=== PATIENT | female | born 1960 | race Caucasian/White ===

== ENCOUNTER 2018-03-08 16:58 | Emergency (ER) | payer BC ==
[~2018-03-08] VITALS: Ht 167.6 cm; Wt 77.6 kg
[2018-03-08 17:14] VITALS: BP 126/75; Ht 167.6 cm; Wt 77.6 kg
== END 2018-03-08 18:03 | disposition home or self-care (01) ==
LOC: ED 16:58
DX: M54.5 Low back pain (principal); N12 Tubulo-interstitial nephritis, not specified as acute or chronic; Z88.6 Allergy status to analgesic agent; Z88.0 Allergy status to penicillin; Z90.710 Acquired absence of both cervix and uterus

== ENCOUNTER 2019-10-15 01:13 | Emergency (ER) | payer BC ==
[~2019-10-15] VITALS: Ht 165.1 cm; Wt 83.0 kg
[2019-10-15 01:20] VITALS: Ht 165.1 cm; Wt 83.0 kg
[2019-10-15 03:12] VITALS: BP 137/74
== END 2019-10-15 03:12 | disposition home or self-care (01) ==
LOC: ED 01:13
DX: S60.561A Insect bite (nonvenomous) of right hand, initial encounter (principal); L03.113 Cellulitis of right upper limb; Z88.6 Allergy status to analgesic agent; Z88.5 Allergy status to narcotic agent; Z88.0 Allergy status to penicillin; W57.XXXA Bitten or stung by nonvenomous insect and other nonvenomous arthropods, initial encounter; Y93.89 Activity, other specified; Y92.89 Other specified places as the place of occurrence of the external cause; Y99.8 Other external cause status

== ENCOUNTER 2020-04-25 14:04 | Emergency (ER) | payer BC ==
[~2020-04-25] VITALS: Ht 165.1 cm; Wt 79.4 kg
[2020-04-25 14:17] VITALS: Ht 165.1 cm; Wt 79.4 kg
[2020-04-25 15:58] VITALS: BP 136/82
== END 2020-04-25 15:55 | disposition home or self-care (01) ==
LOC: ED 14:04
DX: L50.9 Urticaria, unspecified (principal); Z88.0 Allergy status to penicillin; Z88.5 Allergy status to narcotic agent; Z88.6 Allergy status to analgesic agent; Z90.710 Acquired absence of both cervix and uterus